=== PATIENT | female | born 1985 ===

== ENCOUNTER 2019-04-17 18:48 | Emergency (ER) | payer BC ==
[2019-04-17] MEDS ORDERED: Albuterol 2.5 MG/3 ML NEB.SOL* (0.083%) INH ONE ×3 (19:03→20:28)
[2019-04-17] MEDS ORDERED: Ipratropium 0.5MG/2.5ML NEB* 0.5 MG/2.5 ML NEB.SOLN INH ONE ×2 (19:03→20:28)
--- NOTE | 2019-04-17 19:16 | UC ---
Respiratory Complaint HPI - HPI Summary HPI Summary: 33 yo female asthmatic with respiratory issues (cough and wheezing) x 2-3 weeks seen in ER in [facility] and started prednisone minimal relief no relief with her MDIs (old) fever now no CP no leg edema - History of Current Complaint Chief Complaint: UCRespiratory Stated Complaint: SOB Time Seen by Provider: 04/17/19 18:51 Hx Obtained From: Patient Hx Last Menstrual Period: January, has 9 mos old Onset/Duration: Sudden Onset, Lasting Weeks Timing: Constant Severity Initially: Mild Severity Currently: Moderate Pain Intensity: 0 Pain Scale Used: 0-10 Numeric Character: Cough: Nonproductive Aggravating Factors: Allergens, Deep Breaths Alleviating Factors: Nothing Associated Signs And Symptoms: Positive: Dyspnea, Fever, Wheezing - Allergies/Home Medications Allergies/Adverse Reactions: Allergies Allergy/AdvReac Type Severity Reaction Status Date / Time No Known Allergies Allergy Verified 04/17/19 18:56 Home Medications: Home Medications Albuterol HFA INHALER* [Ventolin HFA Inhaler*] 1 puff INH Q4H PRN 04/17/19 [ History Confirmed 04/17/19] PMH/Surg Hx/FS Hx/Imm Hx Previously Healthy: Yes Respiratory History: Asthma - Surgical History Surgical History: None - Family History Known Family History: Positive: Hypertension, Respiratory Disease - Social History Alcohol Use: None Substance Use Type: None Smoking Status (MU): Never Smoked Tobacco Review of Systems All Other Systems Reviewed And Are Negative: Yes Constitutional: Positive: Fever, Chills Skin: Positive: Negative Eyes: Positive: Negative ENT: Positive: Negative Respiratory: Positive: Shortness Of Breath, Cough Cardiovascular: Positive: Negative Gastrointestinal: Positive: Negative Genitourinary: Positive: Negative Motor: Positive: Negative Neurovascular: Positive: Negative Musculoskeletal: Positive: Negative Neurological: Positive: Negative Psychological: Positive: Negative Physical Exam Triage Information Reviewed: Yes Appearance: Well-Appearing, No Pain Distress, Well-Nourished, Other: - increased Work Of Breathing Vital Signs: Initial Vital Signs Temp 100.7 F 04/17/19 18:49 Pulse 83 04/17/19 18:49 Resp 24 04/17/19 18:49 BP 135/89 04/17/19 18:49 Pulse Ox 96 04/17/19 18:49 Vital Signs Reviewed: Yes Eyes: Positive: Conjunctiva Clear ENT: Positive: Hearing grossly normal, Uvula midline. Negative: Nasal congestion, Nasal drainage, Tonsillar swelling, Tonsillar exudate, Muffled voice Neck: Positive: Supple, Nontender, No Lymphadenopathy Respiratory: Positive: Accessory muscle use, Wheezing, Other: - PEAK FLOW 250 Cardiovascular: Positive: RRR, No Murmur, Pulses Normal Musculoskeletal: Positive: ROM Intact, No Edema Neurological: Positive: Alert Psychological Exam: Normal Skin Exam: Normal Diagnostics - Radiology No standard instances Radiology Interpretation Completed By: Radiologist Summary of Radiographic Findings: suspect LLL infiltrate Re-Evaluation - Re-Evaluation First Eval Re-Evaluation Time: 19:29 Change: Improved - subjective improvement but PF worse. Still wheezing but better airmovement. Will check chest XR Second Eval Re-Evaluation Time: 21:15 Change: Improved - peak flow > 350, lungs much clearer with better air movement Respiratory Course/Dx - Differential Dx/Diagnosis Provider Diagnosis: Pneumonia, Bronchospasm Discharge - Sign-Out/Discharge Documenting (check all that apply): Patient Departure All imaging exams completed and their final reports reviewed: No - Discharge Plan Condition: Stable Disposition: HOME Prescriptions: Amoxicillin/Clavulanate TAB* [Augmentin TAB 875*] 875 mg PO BID #12 tab predniSONE [Deltasone 20 MG TAB] 40 mg PO DAILY #8 tab Patient Education Materials: Bronchospasm (ED), Pneumonia (ED) Referrals: No Primary Care Phys,NOPCP [Primary Care Provider] - Additional Instructions: use your inhaler as directed see your MD when you get home CALL [phone] in AM (around 9) for official XR results Take peak flow meter with you If your peak flow is <200 you need to be seen in an ER TO nearest ER for worsening symptoms - Billing Disposition and Condition Condition: STABLE Disposition: Home
[2019-04-17] MEDS ORDERED: predniSONE TAB* 20 MG PO ONE ×2 (19:28→21:13)
[2019-04-17] MEDS ORDERED: Acetaminophen TAB* 325 MG PO ONE (19:48)
[2019-04-17] MEDS ORDERED: Amoxicillin/Clavulanate TAB* 875 MG PO ONE ×2 (20:38→21:11)
[2019-04-17 20:55] VITALS: BP 111/94
[2019-04-17] MEDS ORDERED: Amoxicillin/Clavulanate TAB* 875 MG PO SCH (21:00)
[2019-04-17] MEDS ORDERED: Albuterol HFA INHALER* 8 gm MDI INH ONE (21:14)
--- NOTE | 2019-04-19 07:23 | UC ---
- Progress Note Progress Note: RADIOLOGY REPORT REVIEWED. CONFIRMS LEFT LOWER LOBE AIRSPACE CONSOLIDATION. NO CHANGE IN MANAGEMENT. Course/Dx - Diagnoses Provider Diagnoses: Pneumonia, Bronchospasm Discharge - Sign-Out/Discharge Documenting (check all that apply): Post-Discharge Follow Up All imaging exams completed and their final reports reviewed: Yes - Discharge Plan Condition: Stable Disposition: HOME Prescriptions: Amoxicillin/Clavulanate TAB* [Augmentin TAB 875*] 875 mg PO BID #12 tab predniSONE [Deltasone 20 MG TAB] 40 mg PO DAILY #8 tab Patient Education Materials: Bronchospasm (ED), Pneumonia (ED) Referrals: No Primary Care Phys,NOPCP [Primary Care Provider] - Additional Instructions: use your inhaler as directed see your MD when you get home CALL [phone] in AM (around 9) for official XR results Take peak flow meter with you If your peak flow is <200 you need to be seen in an ER TO nearest ER for worsening symptoms - Billing Disposition and Condition Condition: STABLE Disposition: Home
== END 2019-04-17 21:35 | disposition home or self-care (01) ==
LOC: UCEAST 18:48
DX: J18.9 Pneumonia, unspecified organism (principal); J98.01 Acute bronchospasm; J45.909 Unspecified asthma, uncomplicated
CPT/HCPCS: 71046; 84702; 99204; A9270-GY; G0463; J7512